=== PATIENT | male | born 1975 | race Caucasian/White ===

== ENCOUNTER → 2016-06-26 | Outpatient (CLI) | payer BC ==
--- NOTE | 2016-06-26 18:43 | CT ---
EXAMINATION TYPE: CT soft tissue neck w con DATE OF EXAM: 06/26/2016 6:33 PM COMPARISON: NONE HISTORY: Neck fullness after tonsillectomy. CT DLP: 696.00 mGycm Automated exposure control for dose reduction was used. CONTRAST: CT scan of the neck is performed following with IV Contrast, patient injected with 100 mL of Omnipaqu e 300. Axial images are obtained, coronal and sagittal reformatted images are reviewed. FINDINGS: There is normal aeration of the paranasal sinuses. Orbital margins are intact. Submandibular salivary glands are symmetric. Parotid glands are symmetric. The epiglottis is normal. Subglottic trachea appears normal. Adenoids are not enlarged. There is no evidence of a pharyngeal ma ss. Thyroid gland is symmetric. There is normal contrast opacification of the carotid arteries and ju gular veins. I see no cervical adenopathy. There is no evidence of a discrete neck mass. There is no pathologic fluid collection. I see no bony destructive process. IMPRESSION: Negative CT scan of the neck. No evidence of an abscess. I see no complicating process a fter the tonsillectomy.
== END | disposition home or self-care (01) ==
LOC: RADCTMAIN 17:58
PROVIDERS: ATTEND Otolaryngology
DX: R22.1 Localized swelling, mass and lump, neck (principal); Z90.89 Acquired absence of other organs
CPT/HCPCS: 70491; Q9967

== ENCOUNTER 2017-05-26 20:09 | Observation (INO) | payer BC ==
[2017-05-26] MEDS ORDERED: SODIUM CHLORIDE 0.9% 1,000 ML IV STA (20:25)
--- NOTE | 2017-05-26 20:32 | ED ---
General Adult HPI - General Chief complaint: ENT Stated complaint: Post Op/Tonsils Time Seen by Provider: 05/26/17 20:17 Source: patient, family, RN notes reviewed Mode of arrival: ambulatory Limitations: no limitations - History of Present Illness Initial comments: 42-year-old male presents emergency department with a chief complaint of bleeding at the tonsil site. Patient had a lingual tonsil removed at [facility] today he states it was enlarged so they removed it. He states that there is no other reason for removal. He states that his been bleeding today so they called the on-call ENT who referred him to the closest ER. He denies any lightheadedness or dizziness with this. He states that he is having some anxiety regarding the issue. He denies any nausea or vomiting. He states if he spits he will get blood about a spoonful worse. He states that he is having some generalized pain in his throat feels very raw. He denies any other symptoms at this time. Patient denies any recent fever, chills, shortness of breath, chest pain, back pain, abdominal pain, nausea vomiting, numbness or tingling, dysuria or hematuria, constipation or diarrhea, headaches or visual changes, or any other current symptoms. - Related Data Home Medications Medication Instructions Recorded Confirmed No Known Home Medications [No 05/26/17 05/26/17 Known Home Medications] Allergies Allergy/AdvReac Type Severity Reaction Status Date / Time No Known Allergies Allergy Verified 05/26/17 20:29 Review of Systems ROS Statement: Those systems with pertinent positive or pertinent negative responses have been documented in the HPI. ROS Other: All systems not noted in ROS Statement are negative. Past Medical History Past Medical History: No Reported History History of Any Multi-Drug Resistant Organisms: None Reported Past Surgical History: Back Surgery, Joint Replacement, Orthopedic Surgery, Tonsillectomy Past Psychological History: No Psychological Hx Reported Smoking Status: Never smoker Past Alcohol Use History: Occasional Past Drug Use History: None Reported General Exam Limitations: no limitations General appearance: alert, in no apparent distress Head exam: Present: atraumatic, normocephalic, normal inspection Eye exam: Present: normal appearance, PERRL, EOMI. Absent: scleral icterus, conjunctival injection, periorbital swelling ENT exam: Present: mucous membranes moist. Absent: normal oropharynx (Patient does appear to have some blood in the posterior oropharynx no active bleeding site is visualized at this time) Neck exam: Present: normal inspection. Absent: tenderness, meningismus, lymphadenopathy Respiratory exam: Present: normal lung sounds bilaterally. Absent: respiratory distress, wheezes, rales, rhonchi, stridor Cardiovascular Exam: Present: regular rate, normal rhythm, normal heart sounds. Absent: systolic murmur, diastolic murmur, rubs, gallop, clicks Neurological exam: Present: alert, oriented X3 Psychiatric exam: Present: normal affect, normal mood Skin exam: Present: warm, dry, intact, normal color. Absent: rash Course Vital Signs 05/26/17 05/26/17 05/26/17 20:12 21:25 23:50 Temperature 96.7 F L Pulse Rate 126 H 106 H 116 H Respiratory 18 18 20 Rate Blood Pressure 134/78 122/77 123/81 O2 Sat by Pulse 96 100 99 Oximetry Medical Decision Making - Medical Decision Making 42-year-old male presents to the emergency department with a chief complaint of bleeding at a tonsillectomy site. At this time I spoke with Dr. Basilio from [facility] time patient's care who is requesting that R local ENT care for the patient at this time to determine patient is stable for transfer observation here. At this time Dr. Kaufman was contacted she does agree to come in and managed patient. At this time the patient will be going to the OR for scope to further evaluate - Lab Data Result diagrams: 05/26/17 20:44 05/26/17 20:44 Lab Results 05/26/17 05/26/17 05/26/17 Range/Units 20:44 20:44 20:58 WBC 14.0 H (3.8-10.6) k/uL RBC 5.54 (4.30-5.90) m/uL Hgb 16.7 (13.0-17.5) gm/dL Hct 50.2 (39.0-53.0) % MCV 90.6 (80.0-100.0) fL MCH 30.1 (25.0-35.0) pg MCHC 33.2 (31.0-37.0) g/dL RDW 12.9 (11.5-15.5) % Plt Count 413 (150-450) k/uL Neutrophils % 92 % Lymphocytes % 6 % Monocytes % 1 % Eosinophils % 1 % Basophils % 0 % Neutrophils # 12.8 H (1.3-7.7) k/uL Lymphocytes # 0.9 L (1.0-4.8) k/uL Monocytes # 0.1 (0-1.0) k/uL Eosinophils # 0.1 (0-0.7) k/uL Basophils # 0.0 (0-0.2) k/uL Sodium 139 (137-145) mmol/L Potassium 4.6 (3.5-5.1) mmol/L Chloride 101 (98-107) mmol/L Carbon Dioxide 23 (22-30) mmol/L Anion Gap 15 mmol/L BUN 21 H (9-20) mg/dL Creatinine 0.89 (0.66-1.25) mg/dL Est GFR (MDRD) Af Amer >60 (>60 ml/min/1.73 sqM) Est GFR (MDRD) Non-Af >60 (>60 ml/min/1.73 sqM) Glucose 154 H (74-99) mg/dL Calcium 10.3 H (8.4-10.2) mg/dL Total Bilirubin 0.5 (0.2-1.3) mg/dL AST 26 (17-59) U/L ALT 23 (21-72) U/L Alkaline Phosphatase 62 (38-126) U/L Total Protein 7.5 (6.3-8.2) g/dL Albumin 4.8 (3.5-5.0) g/dL Blood Type A Positive Blood Type Confirm Blood Type Recheck CABO Indicated Antibody Screen NEGATIVE Spec Expiration Date 05/29/2017 - 235705/26/17 Range/Units 22:48 WBC (3.8-10.6) k/uL RBC (4.30-5.90) m/uL Hgb (13.0-17.5) gm/dL Hct (39.0-53.0) % MCV (80.0-100.0) fL MCH (25.0-35.0) pg MCHC (31.0-37.0) g/dL RDW (11.5-15.5) % Plt Count (150-450) k/uL Neutrophils % % Lymphocytes % % Monocytes % % Eosinophils % % Basophils % % Neutrophils # (1.3-7.7) k/uL Lymphocytes # (1.0-4.8) k/uL Monocytes # (0-1.0) k/uL Eosinophils # (0-0.7) k/uL Basophils # (0-0.2) k/uL Sodium (137-145) mmol/L Potassium (3.5-5.1) mmol/L Chloride (98-107) mmol/L Carbon Dioxide (22-30) mmol/L Anion Gap mmol/L BUN (9-20) mg/dL Creatinine (0.66-1.25) mg/dL Est GFR (MDRD) Af Amer (>60 ml/min/1.73 sqM) Est GFR (MDRD) Non-Af (>60 ml/min/1.73 sqM) Glucose (74-99) mg/dL Calcium (8.4-10.2) mg/dL Total Bilirubin (0.2-1.3) mg/dL AST (17-59) U/L ALT (21-72) U/L Alkaline Phosphatase (38-126) U/L Total Protein (6.3-8.2) g/dL Albumin (3.5-5.0) g/dL Blood Type Blood Type Confirm A Positive Blood Type Recheck Antibody Screen Spec Expiration Date Disposition Clinical Impression: Post-operative hemorrhage Disposition: [facility] Condition: Stable Referrals: Andrew Christy MD [Primary Care Provider] - 1-2 days Decision Date: 05/27/17 Decision Time: 00:20
[2017-05-26 20:58] LABS: Basophils % (A) 0 %; Eosinophils # (A) 0.1 k/uL (0-0.7); Eosinophils % (A) 1 %; HCT 50.2 % (39.0-53.0); HGB 16.7 gm/dL (13.0-17.5); Lymphocytes # (A) 0.9 k/uL (1.0-4.8); Lymphocytes % (A) 6 %; MCH 30.1 pg (25.0-35.0); MCHC 33.2 g/dL (31.0-37.0); MCV 90.6 fL (80.0-100.0); Mean Platelet Volume 6.5; Monocytes # (A) 0.1 k/uL (0-1.0); Monocytes % (A) 1 %; Neutrophils # (A) 12.8 k/uL (1.3-7.7); Neutrophils % (A) 92 %; Platelet Count 413 k/uL (150-450); RBC 5.54 m/uL (4.30-5.90); RDW 12.9 % (11.5-15.5)
[2017-05-26 21:12] LABS: ALT 23 U/L (21-72); AST 26 U/L (17-59); Albumin 4.8 g/dL (3.5-5.0); Alkaline Phosphatase 62 U/L (38-126); Anion Gap 15 mmol/L; Blood Urea Nitrogen 21 mg/dL (9-20); Calcium 10.3 mg/dL (8.4-10.2); Carbon Dioxide 23 mmol/L (22-30); Chloride 101 mmol/L (98-107); Glucose 154 mg/dL (74-99); Potassium 4.6 mmol/L (3.5-5.1); Sodium 139 mmol/L (137-145); Total Bilirubin 0.5 mg/dL (0.2-1.3); Total Protein 7.5 g/dL (6.3-8.2)
[2017-05-27] MEDS ORDERED: DEXAMETHASONE SOD PHOS (MDV) 100 MG/10 ML VIAL ONE (00:44)
[2017-05-27] MEDS ORDERED: SUCCINYLCHOLINE CHLORIDE 100 MG/5 ML SYR IV ONE (00:44)
[2017-05-27] MEDS ORDERED: fentaNYL (PF) 50 MCG/ML 2 ML AMP ONE (00:44)
[2017-05-27] MEDS ORDERED: IV FLUID CONTINUATION 100 ML IV ONE (00:44)
[2017-05-27] MEDS ORDERED: PROPOFOL 10 MG/ML 20 ML VIAL IV ONE (00:44)
[2017-05-27] MEDS ORDERED: MIDAZOLAM 2 MG/2 ML VIAL ONE (00:44)
[2017-05-27] MEDS ORDERED: ONDANSETRON 4 MG/2 ML VIAL ONE (00:44)
[2017-05-27] MEDS ORDERED: LACTATED RINGERS 1,000 ML IV ONE ×2 (01:11→02:05)
--- NOTE | 2017-05-27 02:27 | P.OP ---
Date of Procedure: 05/27/17 Preoperative Diagnosis: Acute hemorrhage from the left inferior palatine tonsillectomy site and soft palate laceration left side Postoperative Diagnosis: Same Procedure(s) Performed: Control of oropharyngeal hemorrhage status post left inferior palatine tonsillectomy, today. Control of left soft palate hemorrhage and laceration repair Anesthesia: FLORA Surgeon: Markie Aguirre Estimated Blood Loss (ml): 25 Pathology: none sent Condition: stable Disposition: PACU Indications for Procedure: This is a 42-year-old white male who presents to the emergency room today with active bleeding. Ice water gargles were tried by the emergency room physician but after a half hour there was no improvement. I was called in to the emergency room for an evaluation of this bleed. The patient tells me that he had a lingual tonsillectomy and had been bleeding since surgery. He tells me that he was bleeding in the recovery room but was sent home with active bleeding. He was bleeding from [place] and after continuously the patient and his decided to come to the emergency room here at [facility]. The bleeding had become increasing and more brisk. He was experiencing nausea. After examination it was decided take this patient to the operative room for control of this bleeding. The site of the bleeding was not assessable and there was not able to be controlled in an emergency room setting. All risks, benefits, and alternative therapies were discussed. Risks of bleeding, infection, carotid artery injury, nerve damage, tongue paralysis, scar, etc. etc. were discussed. Consent was obtained and all questions were answered. Operative Findings: Patient had profuse and active bleeding from the inferior portion of the palate 18 tonsillectomy area. It appeared to be a branch off the lingual artery i.e. dorsalis linguali. The bleeding was quite brisk and profuse. We also found a second source of bleeding from a left soft palate laceration there was oozing. The majority of the bleeding was from the inferior portion of the palatine tonsil surgical site. The lingual tonsil at the base the tongue appear to be untouched. The surgical site appeared to be from the inferior pole of where the palatine tonsil was and extended to the area epiglottic fold region. Description of Procedure: This patient was taken to the operative room and placed in the supine position. A general inhalation anesthetic was administered to the patient by the department of anesthesia and intubated with a #6 endotracheal tube with a cough. The patient was monitored throughout the entire case by the department of anesthesia. Functioning IV line was in place. Tooth guard was placed and the oral and hypopharyngeal region was examined with use of a Luz blade and laryngoscopy equipment. The patient was found have a active bleed there was fairly widespread along the lateral pharyngeal and hypopharyngeal region extending from the inferior portion of the palate and tonsil region to the area epiglottic fold. There was brisk bleeding noted laterally. With use of suction electrocoagulation this area was cauterized we utilized pressure, FloSeal, and suture for control of this bleeding. The bleeding was under excellent control. We lost about 25 mL of blood until the bleeding was controlled. The left lateral hypopharyngeal region was examined from the aryepiglottic fold to the inferior portion of the position of the palatine tonsil formally present. No bleeding was encountered the area was cauterized and previous surgical site was noted. After we control the lateral hypopharyngeal and pharyngeal bleeding further bleeding was noted coming from the soft palate. Examination of the soft palate revealed a 2 cm laceration into the muscle of the soft palate and was losing from that site. With use of a DeBakeys and a 4-0 Vicryl, interrupted sutures were placed and the bleeding was controlled. The patient tolerated this well. We will discharge this patient after recovery. Given my phone number to the patient's to call me if any problems should arise. Patient is to rest with head elevated. No crunchy foods for 3 weeks. No heavy lifting or bending. No fish oil. No blood thinners. The understands all these instructions and the patient is to see me on an as-needed basis. I did advise that he follow up at the [facility] soon as he can get a for a reevaluation.
--- NOTE | 2017-05-27 02:33 | P.GSHP ---
History of Present Illness H&P Date: 05/26/17 Chief Complaint: Acute oral pharyngeal and hypopharyngeal hemorrhage This is a 42-year-old white male who underwent surgery at the [facility]. I was told that he had a lingual tonsillectomy and had been bleeding since surgery. tells me that he was bleeding in recovery but was discharged in spite of his continued bleeding. The nurse in recovery told him that the bleeding would stop on the way home. Bleeding unfortunate continued and he presented here in the emergency room at [facility]. The bleeding had been fairly brisk and developed some nausea. Ice water gargles by the emergency room physician did not obtain any improvement. I was asked to see this patient and was called to the emergency room for evaluation. - Constitutional Constitutional: Reports anorexia - EENT Ears, nose, mouth and throat: Denies ant. neck pain - Cardiovascular Cardiovascular: Denies chest pain, Denies claudication - Respiratory Respiratory: Denies congestion - Gastrointestinal Gastrointestinal: Denies bloating - Genitourinary (Female) Genitourinary: Denies difficulty voiding - Genitourinary (Male) Genitourinary: Denies discharge - Musculoskeletal Musculoskeletal: Denies atrophy - Integumentary Integumentary: Denies acne - Neurological Neurological: Denies balance difficulties Past Medical History Past Medical History: No Reported History History of Any Multi-Drug Resistant Organisms: None Reported Past Surgical History: Back Surgery, Joint Replacement, Orthopedic Surgery, Tonsillectomy Past Psychological History: No Psychological Hx Reported Smoking Status: Never smoker Past Alcohol Use History: Occasional Past Drug Use History: None Reported Medications and Allergies Home Medications Medication Instructions Recorded Confirmed Type No Known Home Medications [No 05/26/17 05/26/17 History Known Home Medications] Allergies Allergy/AdvReac Type Severity Reaction Status Date / Time No Known Allergies Allergy Verified 05/26/17 20:29 Surgical - Exam Osteopathic Statement: *. No significant issues noted on an osteopathic structural exam other than those noted in the History and Physical/Consult. Vital Signs Temp Pulse Resp BP Pulse Ox 96.7 F L 126 H 18 134/78 96 05/26/17 20:12 05/26/17 20:12 05/26/17 20:12 05/26/17 20:12 05/26/17 20:12 - General well developed, well nourished, moderate distress - Eyes PERRL, normal ocular movement - ENT Head is normocephalic the face is symmetric there's no abnormal movements is no tenderness to the sinuses are mastoids are no nodules or eruptions or parasites on scalp. Auricles are well-formed canals clear. Nose is patent. Mouth and throat reveals active bleeding from the mouth brisk. Neck is unremarkable no tumors or masses are palpable. normal pinna, normal nares, normal mucosa, no hearing loss, no congestion - Neck no masses, no bruits, trachea midline, no lymphadectomy, no venous distension - Respiratory normal expansion, normal respiratory effort, clear to percussion, clear to auscultation - Abdomen Abdomen: soft - Integumentary no rash, no growths, no abnormal pigmentation - Neurologic normal coordination, normal sensation - Musculoskeletal normal gait, normal posture - Psychiatric oriented to time, oriented to person, oriented to place, speech is normal, memory intact Results - Labs 05/26/17 20:44 05/26/17 20:44 Abnormal Lab Results - Last 24 Hours (Table) 05/26/17 05/26/17 Range/Units 20:44 20:44 WBC 14.0 H (3.8-10.6) k/uL Neutrophils # 12.8 H (1.3-7.7) k/uL Lymphocytes # 0.9 L (1.0-4.8) k/uL BUN 21 H (9-20) mg/dL Glucose 154 H (74-99) mg/dL Calcium 10.3 H (8.4-10.2) mg/dL Diabetes panel 05/26/17 Range/Units 20:44 Sodium 139 (137-145) mmol/L Potassium 4.6 (3.5-5.1) mmol/L Chloride 101 (98-107) mmol/L Carbon Dioxide 23 (22-30) mmol/L BUN 21 H (9-20) mg/dL Creatinine 0.89 (0.66-1.25) mg/dL Glucose 154 H (74-99) mg/dL Calcium 10.3 H (8.4-10.2) mg/dL AST 26 (17-59) U/L ALT 23 (21-72) U/L Alkaline Phosphatase 62 (38-126) U/L Total Protein 7.5 (6.3-8.2) g/dL Albumin 4.8 (3.5-5.0) g/dL Calcium panel 05/26/17 Range/Units 20:44 Calcium 10.3 H (8.4-10.2) mg/dL Albumin 4.8 (3.5-5.0) g/dL Pituitary panel 05/26/17 Range/Units 20:44 Sodium 139 (137-145) mmol/L Potassium 4.6 (3.5-5.1) mmol/L Chloride 101 (98-107) mmol/L Carbon Dioxide 23 (22-30) mmol/L BUN 21 H (9-20) mg/dL Creatinine 0.89 (0.66-1.25) mg/dL Glucose 154 H (74-99) mg/dL Calcium 10.3 H (8.4-10.2) mg/dL Adrenal panel 05/26/17 Range/Units 20:44 Sodium 139 (137-145) mmol/L Potassium 4.6 (3.5-5.1) mmol/L Chloride 101 (98-107) mmol/L Carbon Dioxide 23 (22-30) mmol/L BUN 21 H (9-20) mg/dL Creatinine 0.89 (0.66-1.25) mg/dL Glucose 154 H (74-99) mg/dL Calcium 10.3 H (8.4-10.2) mg/dL Total Bilirubin 0.5 (0.2-1.3) mg/dL AST 26 (17-59) U/L ALT 23 (21-72) U/L Alkaline Phosphatase 62 (38-126) U/L Total Protein 7.5 (6.3-8.2) g/dL Albumin 4.8 (3.5-5.0) g/dL Assessment and Plan (1) Soft palate injury Current Visit: Yes Status: Acute Code(s): S09.93XA - UNSPECIFIED INJURY OF FACE, INITIAL ENCOUNTER SNOMED Code(s): 08334849 Plan: This patient has done well after repair of the soft palatal laceration and control of his left pharyngeal and hypopharyngeal hemorrhage. The bleeding appeared to be coming from a branch of the lingual artery. Patient also had a 2 cm laceration of the left soft palate that was repaired and with repair the bleeding stopped. The patient was monitored and no bleeding was noted after control surgically. I've advised the patient to follow up at the [facility] as soon as possible for a reevaluation. Patient is to call me if any problems should arise. The patient does have Vicodin elixir for pain control. Patient is to be on a soft diet for 3 weeks. No heavy lifting or bending. Time with Patient: Greater than 30
[2017-05-27 08:13] VITALS: BP 148/79; PULSE 105; RESP 16; TEMP 98.4
== END 2017-05-27 03:20 | disposition home or self-care (01) ==
LOC: EC 20:09 → 3SUR 05-27 00:15
PROVIDERS: ADMIT Otolaryngology; ATTEND Otolaryngology
DX: J95.830 Postprocedural hemorrhage of a respiratory system organ or structure following a respiratory system procedure (principal); S01.512A Laceration without foreign body of oral cavity, initial encounter; R11.0 Nausea; Y83.6 Removal of other organ (partial) (total) as the cause of abnormal reaction of the patient, or of later complication, without mention of misadventure at the time of the procedure
CPT/HCPCS: 42962; 42180; 99284 ×2; 96360 ×2; 96361 ×2; 36415; 86900; 86901; 80053; 85025; 86850; G0378; C1762; J2250; J2405; J3010; J1100; J0330; J2704

== ENCOUNTER 2019-03-26 17:37 | Emergency (ER) | payer BC, OTHER ==
[2019-03-26 17:44] VITALS: RESP 18
[2019-03-26] MEDS ORDERED: ASPIRIN 81 MG PO STA (17:57)
--- NOTE | 2019-03-26 18:00 | ED ---
Chest Pain HPI - General Chief Complaint: Chest Pain Stated Complaint: Chest pain, palpitations Time Seen by Provider: 03/26/19 17:50 Source: patient, RN notes reviewed Mode of arrival: ambulatory Limitations: no limitations - History of Present Illness Initial Comments: 43-year-old male presents emergency Department with chief complaint of palpitations, chest pain. Patient states symptoms started yesterday states it's in his lower chest today in the central to left-sided. 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 Patient states that they those related to caffeine take caffeine out of his diet. Patient states he was also on metoprolol for a few years but states he was often doing well. He shouldn't denies any shortness breath, headache or dizziness. He has no complaints of abdominal pain states he has no history of GERD. Patient states that his never had pain with his palpitations on past. He does admit that it's intermittent jabbing type symptoms. - Related Data Home Medications Medication Instructions Recorded Confirmed No Known Home Medications 05/26/17 05/26/17 Allergies Allergy/AdvReac Type Severity Reaction Status Date / Time No Known Allergies Allergy Verified 03/26/19 17:41 Review of Systems ROS Statement: Those systems with pertinent positive or pertinent negative responses have been documented in the HPI. ROS Other: All systems not noted in ROS Statement are negative. EKG Findings - EKG Comments: EKG Findings:: EKG performed at 17:49 normal sinus rhythm rate of 78 NM 134 QRS 92 QT/QTC 354/403 Past Medical History Past Medical History: No Reported History Additional Past Medical History / Comment(s): tachycardia History of Any Multi-Drug Resistant Organisms: None Reported Past Surgical History: Back Surgery, Joint Replacement, Orthopedic Surgery, Tonsillectomy Past Psychological History: No Psychological Hx Reported Smoking Status: Never smoker Past Alcohol Use History: Occasional Past Drug Use History: None Reported General Exam Limitations: no limitations General appearance: alert, in no apparent distress Head exam: Present: atraumatic, normocephalic, normal inspection Eye exam: Present: normal appearance, PERRL, EOMI. Absent: scleral icterus, conjunctival injection, periorbital swelling ENT exam: Present: normal exam, normal oropharynx, mucous membranes moist Neck exam: Present: normal inspection, full ROM. Absent: tenderness, meningismus, lymphadenopathy Respiratory exam: Present: normal lung sounds bilaterally. Absent: respiratory distress, wheezes, rales, rhonchi, stridor Cardiovascular Exam: Present: regular rate, normal rhythm, normal heart sounds. Absent: systolic murmur, diastolic murmur, rubs, gallop, clicks GI/Abdominal exam: Present: soft, normal bowel sounds. Absent: distended, tenderness, guarding, rebound, rigid Back exam: Absent: CVA tenderness (R), CVA tenderness (L) Neurological exam: Present: alert, oriented X3 Skin exam: Present: warm, dry, intact, normal color. Absent: rash Course Vital Signs 03/26/19 17:42 Temperature 97.8 F Pulse Rate 85 Respiratory 18 Rate Blood Pressure 154/92 O2 Sat by Pulse 98 Oximetry Chest Pain MDM - MDM Labs, EKG, chest x-ray unremarkable. Patient said history of palpitations. Patient did have some mild discomfort. There are no acute findings. Patient will be discharged at this time patient advised to follow-up with primary care physician and rotor casting machine operator return parameters were discussed Disposition Clinical Impression: Palpitations Disposition: HOME SELF-CARE Condition: Stable Instructions (If sedation given, give patient instructions): Chest Pain (ED) Additional Instructions: Please return to the Emergency Department if symptoms worsen or any other concerns. Is patient prescribed a controlled substance at d/c from ED?: No Referrals: Andrew Christy MD [Primary Care Provider] - 1-2 days Time of Disposition: 19:10
[2019-03-26 18:14] LABS: Basophils % (A) 0 %; Eosinophils # (A) 0.1 k/uL (0-0.7); Eosinophils % (A) 1 %; HCT 49.5 % (39.0-53.0); HGB 16.5 gm/dL (13.0-17.5); Lymphocytes # (A) 2.2 k/uL (1.0-4.8); Lymphocytes % (A) 31 %; MCHC 33.3 g/dL (31.0-37.0); Mean Platelet Volume 5.8; Monocytes # (A) 0.4 k/uL (0-1.0); Monocytes % (A) 6 %; Neutrophils % (A) 58 %; Platelet Count 372 k/uL (150-450); RDW 12.4 % (11.5-15.5); WBC 6.9 k/uL (3.8-10.6)
--- NOTE | 2019-03-26 18:21 | XR ---
EXAMINATION TYPE: XR chest 2V DATE OF EXAM: 03/26/2019 COMPARISON: NONE HISTORY: Chest pain for 2 days TECHNIQUE: Frontal and lateral views of the chest are obtained. FINDINGS: There is no focal air space opacity, pleural effusion, or pneumothorax seen. On hyperinfl ation could relate to underlying emphysema or degree of inspiration. The cardiac silhouette size is w ithin normal limits. The osseous structures are intact. IMPRESSION: No acute cardiopulmonary process.
[2019-03-26 18:46] LABS: ALT 16 U/L (21-72); AST 37 U/L (17-59); African American GFR (CKD) >90 (>60 ml/min/1.73 sqM); Alkaline Phosphatase 63 U/L (38-126); Anion Gap 12 mmol/L; Blood Urea Nitrogen 16 mg/dL (9-20); Calcium 9.9 mg/dL (8.4-10.2); Carbon Dioxide 27 mmol/L (22-30); Chloride 102 mmol/L (98-107); Glucose 95 mg/dL (74-99); Magnesium 1.8 mg/dL (1.6-2.3); Non-African American GFR(CKD) >90 (>60 ml/min/1.73 sqM); Potassium 4.6 mmol/L (3.5-5.1); Sodium 141 mmol/L (137-145); Total Bilirubin 0.8 mg/dL (0.2-1.3); Total Protein 8.3 g/dL (6.3-8.2)
[2019-03-26 18:57] LABS: D-Dimer 0.46 mg/L FEU (<0.60); Partial Thromboplastin Time 28.1 sec (22.0-30.0); Prothrombin Time 11.1 sec (9.0-12.0)
[2019-03-26 19:24] VITALS: BP 120/77; PULSE 78; TEMP 98.5
== END 2019-03-26 19:24 | disposition home or self-care (01) ==
LOC: EC 17:37
DX: R00.2 Palpitations (principal); R07.89 Other chest pain; Z96.698 Presence of other orthopedic joint implants
CPT/HCPCS: 36415; 71046; 80053; 83690; 83735; 83880; 84484; 85025; 85379; 85610; 85730; 93005; 99285

== ENCOUNTER 2019-04-12 16:41 | Observation (INO) | payer OTHER ==
[2019-04-12 16:54] VITALS: RESP 18
[2019-04-12] MEDS ORDERED: ASPIRIN 81 MG PO STA (17:20)
--- NOTE | 2019-04-12 17:30 | ED ---
Chest Pain HPI - General Chief Complaint: Chest Pain Stated Complaint: Chest pain Time Seen by Provider: 04/12/19 17:00 Source: patient Mode of arrival: ambulatory Limitations: no limitations - History of Present Illness Initial Comments: The patient is a 43-year-old male with past medical history of palpitations presents emergency Department with reported chest pain. He describes it as a chest tightness which started yesterday. Reports that he was laying around his house when symptoms started. No provocative factors. Pressure sensation radiates to his left arm. No associated shortness of breath, diaphoresis, nausea or vomiting. Denies pleuritic chest pain. No worsening with exertion. Did not take any medications at home for his symptoms. Denies any previous cardiac history other than palpitations which was related to caffeine intake. At time and saw a tree warden out of [place]. States that this was several years ago. He denies history of cardiac catheterization. Unknown when his last stress test was. Denies family history of cardiac disease. No lower extremity edema. Denies any calf pain or swelling. No history of DVT or PE. No ripping or tearing sensation to his back. Denies any back or flank pain. Does admit to left upper quadrant abdominal pain. Denies any changes in his bowel or bladder habits. No fevers or chills. Denies cough or hemoptysis. No recent travel greater than 6 hours. The patient had chest pain on the eighth of this month. He did come in to the emergency room for evaluation. Laboratory studies and chest x-ray are negative the patient was sent home. He he called his tree warden to follow-up however they state that since it's been such a extended period of time that he would have to be considered a new patient. Because of this he did call make an appointment with Dr. Russo. Appointment is scheduled for April 25. There are no alleviating, preciptating or modifying factors. - Related Data Home Medications Medication Instructions Recorded Confirmed No Known Home Medications 05/26/17 04/12/19 Allergies Allergy/AdvReac Type Severity Reaction Status Date / Time No Known Allergies Allergy Verified 04/12/19 19:06 Review of Systems ROS Statement: Those systems with pertinent positive or pertinent negative responses have been documented in the HPI. ROS Other: All systems not noted in ROS Statement are negative. EKG Findings - EKG Comments: EKG Findings:: EKG demonstrates a sinus rhythm with a ventricular rate of 70. NC interval 142. QRS 90. QTc is 386. There is J-point elevation in leads V3. No reciprocal changes. The patient's EKG is compared to his previous EKG on the eighth and a similar nature Past Medical History Past Medical History: No Reported History Additional Past Medical History / Comment(s): tachycardia History of Any Multi-Drug Resistant Organisms: None Reported Past Surgical History: Back Surgery, Joint Replacement, Orthopedic Surgery, Tonsillectomy Past Psychological History: No Psychological Hx Reported Smoking Status: Never smoker Past Alcohol Use History: Occasional Past Drug Use History: None Reported - Past Family History Father Family Medical History: No Reported History Mother Family Medical History: No Reported History General Exam Limitations: no limitations General appearance: alert, in no apparent distress Head exam: Present: atraumatic, normocephalic, normal inspection Eye exam: Present: normal appearance, PERRL, EOMI. Absent: scleral icterus, conjunctival injection, periorbital swelling ENT exam: Present: normal exam, mucous membranes moist Neck exam: Present: normal inspection. Absent: tenderness, meningismus, lymphadenopathy Respiratory exam: Present: normal lung sounds bilaterally. Absent: respiratory distress, wheezes, rales, rhonchi, stridor Cardiovascular Exam: Present: regular rate, normal rhythm, normal heart sounds. Absent: systolic murmur, diastolic murmur, rubs, gallop, clicks GI/Abdominal exam: Present: soft, normal bowel sounds. Absent: distended, tenderness, guarding, rebound, rigid Extremities exam: Present: normal inspection, full ROM, normal capillary refill. Absent: tenderness, pedal edema, joint swelling, calf tenderness Back exam: Present: normal inspection Neurological exam: Present: alert, oriented X3, CN II-XII intact Psychiatric exam: Present: normal affect, normal mood Skin exam: Present: warm, dry, intact, normal color. 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 A thorough history and physical exam was performed. Patient was placed on continuous pulse ox and cardiac monitoring. Peripheral IV is established. 12-lead EKG is performed which demonstrates some J-point elevation in lead V3. This is compared to the patient's previous EKG and is similar. Laboratory studies were conducted. CBC, CMP and coags are unremarkable. D-dimer is 0.39. First troponin is negative. Chest x-ray demonstrated no acute findings. As this is the patient's second time to the emergency room with reported chest pain I did recommend hospital admission in order to trend his troponins and to be evaluated by cardiology. The patient did agree to this. I called and discussed the case with Dr. Hays who accepted admission for the patient. The patient is currently awaiting a bed on the floor Disposition Clinical Impression: Chest pain Disposition: ADMITTED IP TO THIS HOSP Condition: Stable Is patient prescribed a controlled substance at d/c from ED?: No Decision to Admit Reason: Admit from EC Decision Date: 04/12/19 Decision Time: 18:47
[2019-04-12 17:38] LABS: Basophils # (A) 0.1 k/uL (0-0.2); Basophils % (A) 3 %; Eosinophils # (A) 0.1 k/uL (0-0.7); Eosinophils % (A) 2 %; HCT 49.9 % (39.0-53.0); HGB 16.4 gm/dL (13.0-17.5); Lymphocytes # (A) 1.6 k/uL (1.0-4.8); Lymphocytes % (A) 31 %; MCH 29.5 pg (25.0-35.0); MCHC 32.9 g/dL (31.0-37.0); MCV 89.9 fL (80.0-100.0); Mean Platelet Volume 6.6; Monocytes # (A) 0.3 k/uL (0-1.0); Monocytes % (A) 7 %; Neutrophils # (A) 2.8 k/uL (1.3-7.7); Neutrophils % (A) 55 %; Platelet Count 259 k/uL (150-450); RBC 5.56 m/uL (4.30-5.90); RDW 12.6 % (11.5-15.5); WBC 5.1 k/uL (3.8-10.6)
--- NOTE | 2019-04-12 17:53 | XR ---
EXAMINATION TYPE: XR chest 2V DATE OF EXAM: 04/12/2019 COMPARISON: 03/26/2019 HISTORY: Chest pain TECHNIQUE: 2 views FINDINGS: Heart and mediastinum are normal. Lungs are clear. Diaphragm is normal. Bony thorax appears normal. There are chest leads. IMPRESSION: Normal chest. No change.
[2019-04-12 17:56] LABS: D-Dimer 0.39 mg/L FEU (<0.60); Partial Thromboplastin Time 29.7 sec (22.0-30.0); Prothrombin Time 10.6 sec (9.0-12.0)
[2019-04-12 18:00] LABS: ALT 19 U/L (4-49); AST 28 U/L (17-59); African American GFR (CKD) >90 (>60 ml/min/1.73 sqM); Albumin 4.7 g/dL (3.5-5.0); Alkaline Phosphatase 77 U/L (38-126); Anion Gap 10 mmol/L; Blood Urea Nitrogen 14 mg/dL (9-20); Calcium 9.7 mg/dL (8.4-10.2); Carbon Dioxide 27 mmol/L (22-30); Chloride 104 mmol/L (98-107); Glucose 91 mg/dL (74-99); Magnesium 1.8 mg/dL (1.6-2.3); Non-African American GFR(CKD) >90 (>60 ml/min/1.73 sqM); Sodium 141 mmol/L (137-145); Total Bilirubin 0.7 mg/dL (0.2-1.3); Total Protein 7.7 g/dL (6.3-8.2)
[2019-04-12] MEDS ORDERED: NALOXONE 0.4 MG/ML 1 ML VIAL IV PRN (18:47)
[2019-04-13 06:26] LABS: Basophils % (A) 0 %; Eosinophils # (A) 0.1 k/uL (0-0.7); Eosinophils % (A) 3 %; HCT 47.2 % (39.0-53.0); HGB 16.3 gm/dL (13.0-17.5); Lymphocytes # (A) 1.9 k/uL (1.0-4.8); Lymphocytes % (A) 39 %; MCH 30.9 pg (25.0-35.0); MCHC 34.4 g/dL (31.0-37.0); MCV 89.8 fL (80.0-100.0); Mean Platelet Volume 7.1; Monocytes # (A) 0.3 k/uL (0-1.0); Monocytes % (A) 6 %; Neutrophils # (A) 2.4 k/uL (1.3-7.7); Neutrophils % (A) 49 %; Platelet Count 258 k/uL (150-450); RBC 5.25 m/uL (4.30-5.90); RDW 12.7 % (11.5-15.5); WBC 4.8 k/uL (3.8-10.6)
[2019-04-13 06:50] LABS: African American GFR (CKD) >90 (>60 ml/min/1.73 sqM); Anion Gap 5 mmol/L; Blood Urea Nitrogen 14 mg/dL (9-20); Calcium 9.5 mg/dL (8.4-10.2); Carbon Dioxide 30 mmol/L (22-30); Chloride 105 mmol/L (98-107); Glucose 99 mg/dL (74-99); Non-African American GFR(CKD) >90 (>60 ml/min/1.73 sqM); Potassium 4.5 mmol/L (3.5-5.1); Sodium 140 mmol/L (137-145)
--- NOTE | 2019-04-13 08:33 | CONS ---
CONSULTATION Mr. Aguirre is a 43-year-old male who presented with symptoms of chest discomfort. His discomfort was not exertional in pattern, occurring on and off, lasting for a very brief period of time. He is usually active physically and has no exertional symptoms. He denies any dizziness. He had a prior history of palpitation and has been evaluated at [place] in the past and subsequently underwent a workup about 7-8 years ago and that was unremarkable. Some of his palpitation were worse with caffeine, which he has decreased. Patient denies any recent palpitation. He has no PND, orthopnea, or peripheral edema. His coronary risk factor is negative for hypertension or diabetes. He is a nonsmoker. No document hyperlipidemia. MEDICATION: At home are none. REVIEW OF SYSTEMS: RESPIRATORY SYSTEM: No documented history of asthma, emphysema or bronchitis. GI SYSTEM: No recent GI bleeding. No peptic ulcer disease. SYSTEM: No dysuria or hematuria. NERVOUS SYSTEM: No stroke or seizure. 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 Blood pressure 117/70 with a heart rate in 70s. HEAD: Normocephalic. EYES: Sclerae nonicteric. NECK: Good upstroke, no bruit, no distension. LUNGS: Clear to auscultation. HEART: Regular rate and rhythm, S1, S2. No S3. No S4. No murmur or rub. ABDOMEN: Soft, nontender, positive bowel sounds, no organomegaly. EXTREMITIES: No edema, intact pulses. LAB DATA: Revealed troponin less than 0.012 for 3 samples. BUN and creatinine 14 and 0.9, potassium 4.5, hemoglobin of 16.3 EKG revealed a sinus mechanism, normal axis and intervals. No acute changes. Chest x-ray shows no acute infiltrate. IMPRESSION: Chest discomfort of unclear etiology, has atypical features feature for ischemic heart disease, probably noncardiac. RECOMMENDATION: I recommend proceeding with a stress echocardiogram and a transthoracic echo. If there is no evidence of abnormality, then no further cardiac workup will be needed. Thank you for this consult. Will follow with you. MMODL / IJN: [id number] /
[2019-04-13 11:47] VITALS: BP 124/83; PULSE 97; TEMP 98.8
--- NOTE | 2019-04-13 11:52 | ECHOF ---
Referral Reason:cp MEASUREMENTS -------- HEIGHT: 185.4 cm WEIGHT: 75.7 kg BP: 151/76 RVIDd: 2.8 cm (< 3.3) IVSd: 1.1 cm (0.6 - 1.1) LVIDd: 4.2 cm (3.9 - 5.3) LVPWd: 1.1 cm (0.6 - 1.1) IVSs: 1.4 cm LVIDs: 3.1 cm LVPWs: 1.6 cm LA Diam: 2.3 cm (2.7 - 3.8) Ao Diam: 3.6 cm (2.0 - 3.7) AV Cusp: 2.3 cm (1.5 - 2.6) MV EXCURSION: 21.150 mm (> 18.000) MV EF SLOPE: 127 mm/s (70 - 150) EPSS: 0.4 cm MV E Leandro: 0.75 m/s MV DecT: 205 ms MV A Leandro: 0.62 m/s MV E/A Ratio: 1.22 RAP: 5.00 mmHg RVSP: 26.68 mmHg FINDINGS -------- Sinus rhythm. This was a technically good study. The left ventricular size is normal. Left ventricular wall thickness is normal. Overall left vent ricular systolic function is normal with, an EF between 55 - 60 %. The right ventricle is normal in size. The left atrial size is normal. The right atrial size is normal. Interatrial and interventricular septum intact. The aortic valve is trileaflet, and appears structurally normal. No aortic stenosis or regurgitation. The mitral valve is normal. No mitral regurgitation. Trace tricuspid regurgitation present. Right ventricular systolic pressure is normal at < 35 mmHg. There is no pulmonic regurgitation present. The aortic root size is normal. Normal inferior vena cava with normal inspiratory collapse consistent with estimated right atrial pre ssure of 5 mmHg. There is no pericardial effusion. CONCLUSIONS -------- 1. Sinus rhythm. 2. This was a technically good study. 3. The left ventricular size is normal. 4. Left ventricular wall thickness is normal. 5. Overall left ventricular systolic function is normal with, an EF between 55 - 60 %. 6. The left atrial size is normal. 7. The aortic valve is trileaflet, and appears structurally normal. No aortic stenosis or regurgitati on. 8. The mitral valve is normal. 9. Trace tricuspid regurgitation present. 10. Right ventricular systolic pressure is normal at < 35 mmHg. 11. There is no pulmonic regurgitation present. 12. There is no pericardial effusion. THERMODYNAMICS ENGINEER: Sasha Blanchard RDCS
--- NOTE | 2019-04-13 12:29 | ECHOS ---
STRESS ECHOCARDIOGRAM DATE OF SERVICE: 04/13/2019 INDICATIONS: Chest pain. MEDICATIONS: BASELINE HEART RATE: 75 BASELINE BLOOD PRESSURE: 151/76 MAXIMUM HEART RATE: 182 MAXIMUM BLOOD PRESSURE: 200/84 85% MPHR: 152 100% MPHR: 171 METS: 14.7 MAXIMUM STAGE REACHED: V TOTAL EXERCISE TIME: 14 minutes 12 seconds CLINICAL INFORMATION: Baseline rhythm is a sinus mechanism, rate of 75, normal axis and intervals, normal electrocardiogram. Baseline blood pressure 151/76 mmHg. Patient exercised on Jose Miguel protocol for 14 minute 12 seconds reaching peak rate 182 beats per minute which is equal to 100% maximum predicted heart rate. Peak blood pressure 200/84 mmHg. Test was terminated secondary to fatigue. There was no chest pain. Electrocardiograph monitoring revealed no evidence of diagnostic ischemic ST deviation. Baseline echocardiogram revealed normal wall motion. At peak exercise, there was normal wall motion augmentation with no hypokinesis or dyskinesis. CONCLUSION: 1. Excellent exercise tolerance with normal electrocardiograph response to exercise. 2. Normal stress echocardiogram with no evidence of stress induced ischemia. MMODL / IJN: [id number] /
--- NOTE | 2019-04-13 15:59 | P.DS ---
Providers Date of admission: 04/12/19 18:47 Attending physician: Jorge Luis Hays MD Consults: 04/12/19 18:59 Consult Physician Urgent Consulting Provider: [facility] Consult Reason/Comments: acute chest pain Do you want consulting provider notified?: Yes Primary care physician: Andrew Christy Hospital Course: Please refer to my H&P for further details Patient Condition at Discharge: Stable Plan - Discharge Summary New Discharge Prescriptions: No Action No Known Home Medications Discharge Medication List No Known Home Medications 05/26/17 [History] Follow up Appointment(s)/Referral(s): Camilo Tyson MD [STAFF PHYSICIAN] - 2 Weeks (Cardiology will call with follow up appointment date and time) Andrew Christy MD [Primary Care Provider] - 1-2 days Patient Instructions/Handouts: Chest Pain (DC) Discharge Disposition: HOME SELF-CARE
--- NOTE | 2019-04-13 15:59 | P.HPIM ---
History of Present Illness 43-year-old male came in with complaints of chest discomfort mild pressure like on and off nonexertional associated palpitations. Patient underwent the lengthy workup in the past for palpitations. It was believed patient's palpitations are secondary to caffeine and patient ischemia Consistent. Patient's symptoms completely resolved at this time patient denied Proximal nocturnal dyspnea. Patient was evaluated by cardiology rule out a concurrent syndromes underwent stress test that was negative no further workup is being recommended by cardiology and patient is being discharged patient doesn't take any medications at home. Review of Systems REVIEW OF SYSTEMS: CONSTITUTIONAL: No fever, no malaise, no fatigue. HEENT: No recent visual problems or hearing problems. Denied any sore throat. CARDIOVASCULAR: No orthopnea, PND, , no syncope. PULMONARY: No shortness of breath, no cough, no hemoptysis. GASTROINTESTINAL: No diarrhea, no nausea, no vomiting, no abdominal pain. NEUROLOGICAL: No headaches, no weakness, no numbness. HEMATOLOGICAL: Denies any bleeding or petechiae. GENITOURINARY: Denies any burning micturition, frequency, or urgency. MUSCULOSKELETAL/RHEUMATOLOGICAL: Denies any joint pain, swelling, or any muscle pain. ENDOCRINE: Denies any polyuria or polydipsia. The rest of the 14-point review of systems is negative. Past Medical History Past Medical History: No Reported History Additional Past Medical History / Comment(s): tachycardia History of Any Multi-Drug Resistant Organisms: None Reported Past Surgical History: Back Surgery, Joint Replacement, Orthopedic Surgery, Tonsillectomy Additional Past Surgical History / Comment(s): right below elbow amp Past Psychological History: No Psychological Hx Reported Smoking Status: Never smoker Past Alcohol Use History: Occasional Past Drug Use History: None Reported - Past Family History Father Family Medical History: No Reported History Mother Family Medical History: No Reported History Medications and Allergies Home Medications Medication Instructions Recorded Confirmed Type No Known Home Medications 05/26/17 04/12/19 History Allergies Allergy/AdvReac Type Severity Reaction Status Date / Time No Known Allergies Allergy Verified 04/12/19 19:06 Physical Exam Vitals: Vital Signs Temp Pulse Pulse Pulse Resp BP BP 04/13/19 11:46 98.8 F 97 18 124/83 04/13/19 08:00 97.9 F 63 18 117/79 04/13/19 04:00 98.1 F 73 18 113/65 12/26/19 00:00 60 18 128/75 04/12/19 20:00 98.4 F 59 L 18 130/86 04/12/19 19:30 97.8 F 62 18 118/84 04/12/19 19:00 65 16 117/85 04/12/19 18:30 64 16 120/83 04/12/19 18:00 64 18 137/84 04/12/19 17:30 69 17 141/98 04/12/19 17:16 64 17 04/12/19 16:52 97.7 F 77 18 136/91 04/12/19 16:45 74 Pulse Ox 04/13/19 11:46 95 04/13/19 08:00 96 04/13/19 04:00 98 04/13/19 00:00 97 04/12/19 20:00 98 04/12/19 19:30 97 04/12/19 19:00 97 04/12/19 18:30 97 04/12/19 18:00 98 04/12/19 17:30 04/12/19 17:16 04/12/19 16:52 98 04/12/19 16:45 Intake and Output 04/13/19 04/13/19 04/13/19 06:59 14:59 22:59 Other: Voiding Method Toilet # Voids 2 Weight 75.1 kg 75.1 kg PHYSICAL EXAMINATION: GENERAL: The patient is alert and oriented x3, not in any acute distress. Well developed, well nourished. HEENT: Pupils are round and equally reacting to light. EOMI. No scleral icterus. No conjunctival pallor. Normocephalic, atraumatic. No pharyngeal erythema. No thyromegaly. CARDIOVASCULAR: S1 and S2 present. No murmurs, rubs, or gallops. PULMONARY: Chest is clear to auscultation, no wheezing or crackles. ABDOMEN: Soft, nontender, nondistended, normoactive bowel sounds. No palpable organomegaly. MUSCULOSKELETAL: No joint swelling or deformity. EXTREMITIES: No cyanosis, clubbing, or pedal edema. 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 SKIN: No rashes. Results CBC & Chem 7: 04/13/19 06:00 04/13/19 06:00 Thrombosis Risk Factor Assmnt - Choose All That Apply Each Factor Represents 1 point: Age 41-60 years Thrombosis Risk Factor Assessment Total Risk Factor Score: 1 Thrombosis Risk Factor Assessment Level: Low Risk Assessment and Plan Plan: Chest discomfort etiology is not clear. Impression chest pain and underwent stresses and patient is being discharged today and patient is cleared by cardiology -Palpitations urology is not clear either and patient had extensive workup in the past patient become symptomatic again probably will need workup as an outpatient for that.
== END 2019-04-13 13:48 | disposition home or self-care (01) ==
LOC: EC 16:41 → 3SCARD 18:47 → 1SOBS 04-13 07:40
PROVIDERS: ADMIT Internal Medicine; ATTEND Internal Medicine
DX: R07.89 Other chest pain (principal); R00.2 Palpitations; Z98.890 Other specified postprocedural states; Z96.60 Presence of unspecified orthopedic joint implant; Z90.89 Acquired absence of other organs
CPT/HCPCS: 93005; 99285; 36415; 93306; 93351; 85379; 80053; 80048; 83735; 84484 ×2; 85025 ×2; 85610; 85730; 71046; G0378 ×2

== ENCOUNTER → 2021-01-30 | Outpatient (CLI) | payer OTHER ==
--- NOTE | 2021-01-30 17:39 | XR ---
EXAMINATION TYPE: XR chest 2V DATE OF EXAM: 01/30/2021 COMPARISON: 04/12/2019 INDICATION: Surgical clearance TECHNIQUE: Frontal and lateral views of the chest are obtained. FINDINGS: The heart size is normal. The pulmonary vasculature is normal. The lungs are clear. IMPRESSION: 1. No acute pulmonary process.
[2021-01-30 18:07] LABS: Appearance,Urine Clear (Clear); Bilirubin,Urine Negative (Negative); Blood,Urine Negative (Negative); Color,Urine Light Yellow; Glucose,Urine (UA) Negative (Negative); Ketones,Urine Negative (Negative); Leukocyte Esterase,Urine Negative (Negative); Nitrite,Urine Negative (Negative); PH, Urine 6.5 (5.0-8.0); Protein,Urine Negative (Negative); Specific Gravity,Urine 1.014 (1.001-1.035); Urobilinogen,Urine <2.0 mg/dL (<2.0)
[2021-01-30 23:51] LABS: HGB 15.1 g/dL (13.0-17.0); MCH 30.4 pg (27.0-32.0); MCHC 32.8 g/dL (32.0-37.0); MCV 92.6 fL (80.0-97.0); Mean Platelet Volume 8.6 fL (9.5-12.2); Platelet Count 307 X 10*3/uL (140-440); RBC 4.97 X 10*6/uL (4.40-5.60); RDW 13.1 % (11.5-14.5)
[2021-01-31 03:57] LABS: African American GFR (CKD) 116.3 (60.0-200.0); Anion Gap 16.2 mmol/L (4.00-12.00); BUN/Creat Ratio 19.27 Ratio (12.00-20.00); Blood Urea Nitrogen 17.9 mg/dL (9.0-27.0); Calcium 9.4 mg/dL (8.7-10.3); Carbon Dioxide 23.6 mmol/L (21.6-31.8); Non-African American GFR(CKD) 100.3 (60.0-200.0); Potassium 4.6 mmol/L (3.5-5.5)
== END | disposition home or self-care (01) ==
LOC: LABWHC1 16:06
PROVIDERS: ATTEND Neurological Surgery
DX: Z01.818 Encounter for other preprocedural examination (principal); Z20.822 Contact with and (suspected) exposure to COVID-19; D64.9 Anemia, unspecified; R05.9 Cough, unspecified; I10 Essential (primary) hypertension; I49.8 Other specified cardiac arrhythmias; R30.0 Dysuria; R94.31 Abnormal electrocardiogram [ECG] [EKG]
CPT/HCPCS: 80048; 85027; 81003; 71046; 93005; 36415; U0003; U0005

== ENCOUNTER 2021-02-09 11:07 | Emergency (ER) | payer BC, OTHER ==
[2021-02-09 11:15] VITALS: RESP 18; TEMP 97.9
[2021-02-09] MEDS ORDERED: SODIUM CHLORIDE 0.9% 1,000 ML IV STA (11:24)
--- NOTE | 2021-02-09 11:34 | ED ---
General Adult HPI - General Chief complaint: Headache Stated complaint: Headache/post spinal epi Time Seen by Provider: 02/09/21 11:16 Source: patient Mode of arrival: ambulatory Limitations: no limitations - History of Present Illness Initial comments: Dictation was produced using [employer] dictation software. please excuse any grammatical, word or spelling errors. Chief Complaint: 45-year-old male with history lower back spinal fusion presents to the emergency department for headache after spinal epidural injection. History of Present Illness: 45-year-old male he does not have any significant comorbidities. Patient states that on Wednesday earlier this week he had a spinal epidural injection for chronic back pain performed by his spinal surgeon in [place]. Several years ago patient had spinal fusion surgery to correct what minnie tate describes as scoliosis. Patient states that Wednesday he went to see his spinal surgeon received an injection in his lower back. Patient tolerated the procedure well. Over the next several days he started to have headache. Patient states the headache is mild. It's improved with laying flat and worsened with standing up. Denies any fever. Pain is non-rating. No weakness to the legs. No saddle anesthesia. Not difficulty ambulating. No bowel or bladder incontinence. Constitutional symptoms. The ROS documented in this emergency department record has been reviewed and confirmed by me. Those systems with pertinent positive or negative responses have been documented in the HPI. All other systems are other negative and/or noncontributory. PHYSICAL EXAM: General Impression: Alert and oriented x3, not in acute distress HEENT: Normocephalic atraumatic, extra-ocular movements intact, pupils equal and reactive to light bilaterally, mucous membranes moist. Cardiovascular: Heart regular rate and rhythm Chest: Able to complete full sentences, no retractions, no tachypnea Musculoskeletal: Pulses present and equal in all extremities, no peripheral edema Back: No abnormalities. Motor: no focal deficits noted Neurological: CN II-XII grossly intact, no focal motor or sensory deficits noted, negative Brudzinski, negative Kernig's Skin: Intact with no visualized rashes Psych: Normal affect and mood ED course: 45-year-old male presents to the emergency department for headache after spinal epidural injection. Vital signs upon arrival are within acceptable limits. Patient does not have any signs or symptoms of epidural infection, spinal cord compression. Patient's clinical presentation suspicious for post-LP headache. Patient reports improvement after fluids and caffeine. Patient states she was feeling well though he stood up to go to the bathroom started having headache again. Patient states he wished that his neurosurgery would call him back. He was been trying to get in touch with him since his symptoms began after the procedure. He has not heard back. Patient agreeable with trial of other analgesic medications. Case is discussed with Dr. Bragg who performed procedure. He states that he also agrees that this is a spinal epidural headache. Dr. Bragg requested patient lie flat and follow-up in his office for possible blood patch. Patient given some prescription for pain medications. Patient agreeable with plan. - Related Data Home Medications Medication Instructions Recorded Confirmed Acetaminophen [Tylenol] 500 mg PO Q4-6H PRN 02/09/21 02/09/21 Lisdexamfetamine Dimesylate 30 mg PO DAILY 02/09/21 02/09/21 [Vyvanse] Meloxicam [Mobic] 7.5 mg PO W/BRKFST PRN 02/09/21 02/09/21 Previous Rx's Medication Instructions Recorded HYDROcodone/APAP 5-325MG [Pennock 1 tab PO Q6HR PRN 3 Days #12 tab 02/09/21 5-325] Allergies Allergy/AdvReac Type Severity Reaction Status Date / Time No Known Allergies Allergy Verified 02/09/21 11:43 Review of Systems ROS Statement: Those systems with pertinent positive or pertinent negative responses have been documented in the HPI. ROS Other: All systems not noted in ROS Statement are negative. Past Medical History Past Medical History: No Reported History Additional Past Medical History / Comment(s): tachycardia History of Any Multi-Drug Resistant Organisms: None Reported Past Surgical History: Back Surgery, Joint Replacement, Orthopedic Surgery, Tonsillectomy Additional Past Surgical History / Comment(s): right below elbow amp Past Psychological History: No Psychological Hx Reported Smoking Status: Never smoker Past Alcohol Use History: Occasional Past Drug Use History: None Reported - Past Family History Father Family Medical History: No Reported History Mother Family Medical History: No Reported History General Exam Limitations: no limitations Course Vital Signs 02/09/21 02/09/21 11:08 13:33 Temperature 97.9 F Pulse Rate 97 88 Respiratory 18 Rate Blood Pressure 141/101 O2 Sat by Pulse 98 97 Oximetry Medical Decision Making - Lab Data Result diagrams: 02/09/21 11:47 02/09/21 11:47 Lab Results 02/09/21 02/09/21 Range/Units 11:47 11:47 WBC 9.3 (3.8-10.6) k/uL RBC 5.61 (4.30-5.90) m/uL Hgb 17.3 (13.0-17.5) gm/dL Hct 52.0 (39.0-53.0) % MCV 92.7 (80.0-100.0) fL MCH 30.8 (25.0-35.0) pg MCHC 33.3 (31.0-37.0) g/dL RDW 12.5 (11.5-15.5) % Plt Count 352 (150-450) k/uL MPV 6.5 Neutrophils % 74 % Lymphocytes % 18 % Monocytes % 5 % Eosinophils % 1 % Basophils % 0 % Neutrophils # 6.8 (1.3-7.7) k/uL Lymphocytes # 1.7 (1.0-4.8) k/uL Monocytes # 0.5 (0-1.0) k/uL Eosinophils # 0.1 (0-0.7) k/uL Basophils # 0.0 (0-0.2) k/uL Sodium 137 (137-145) mmol/L Potassium 4.3 (3.5-5.1) mmol/L Chloride 101 (98-107) mmol/L Carbon Dioxide 28 (22-30) mmol/L Anion Gap 8 mmol/L BUN 20 (9-20) mg/dL Creatinine 0.79 (0.66-1.25) mg/dL Est GFR (CKD-EPI)AfAm >90 (>60 ml/min/1.73 sqM) Est GFR (CKD-EPI)NonAf >90 (>60 ml/min/1.73 sqM) Glucose 110 H (74-99) mg/dL Calcium 9.9 (8.4-10.2) mg/dL Disposition Clinical Impression: Headache after spinal puncture Disposition: HOME SELF-CARE Condition: Fair Instructions (If sedation given, give patient instructions): Acute Headache (ED) Additional Instructions: today you were diagnosed with spinal epidural headache 1. lay flat as much as possible 2. consume caffeine products 3. follow up with Dr. Bragg if symptoms not improved Prescriptions: HYDROcodone/APAP 5-325MG [Pennock 5-325] 1 tab PO Q6HR PRN 3 Days #12 tab PRN Reason: Severe Pain Is patient prescribed a controlled substance at d/c from ED?: Yes If prescribed controlled substance>3 days was MAPS reviewed?: Prescribed <3 Days Referrals: Andrew Christy MD [Primary Care Provider] - 1-2 days
[2021-02-09 11:56] LABS: Basophils % (A) 0 %; Eosinophils # (A) 0.1 k/uL (0-0.7); Eosinophils % (A) 1 %; HGB 17.3 gm/dL (13.0-17.5); Lymphocytes # (A) 1.7 k/uL (1.0-4.8); Lymphocytes % (A) 18 %; MCH 30.8 pg (25.0-35.0); MCHC 33.3 g/dL (31.0-37.0); MCV 92.7 fL (80.0-100.0); Mean Platelet Volume 6.5; Monocytes # (A) 0.5 k/uL (0-1.0); Monocytes % (A) 5 %; Neutrophils # (A) 6.8 k/uL (1.3-7.7); Neutrophils % (A) 74 %; Platelet Count 352 k/uL (150-450); RBC 5.61 m/uL (4.30-5.90); RDW 12.5 % (11.5-15.5); WBC 9.3 k/uL (3.8-10.6)
[2021-02-09] MEDS ORDERED: CAFFEINE-SODIUM BENZOATE 500 MG in SODIUM CHLORIDE 0.9% 1,000 ML IVPB ONE (12:00)
[2021-02-09 12:08] LABS: African American GFR (CKD) >90 (>60 ml/min/1.73 sqM); Anion Gap 8 mmol/L; Blood Urea Nitrogen 20 mg/dL (9-20); Calcium 9.9 mg/dL (8.4-10.2); Carbon Dioxide 28 mmol/L (22-30); Chloride 101 mmol/L (98-107); Glucose 110 mg/dL (74-99); Non-African American GFR(CKD) >90 (>60 ml/min/1.73 sqM); Potassium 4.3 mmol/L (3.5-5.1); Sodium 137 mmol/L (137-145)
[2021-02-09] MEDS ORDERED: MORPHINE SULFATE 2 MG/ML SYRINGE IVP STA (13:32)
[2021-02-09] MEDS ORDERED: KETOROLAC 15 MG/ML 1 ML VIAL IVP STA (13:55)
[2021-02-09 14:54] VITALS: BP 121/87; PULSE 79
== END 2021-02-09 14:54 | disposition home or self-care (01) ==
LOC: EC 11:07
DX: R51.9 Headache, unspecified (principal); Z79.1 Long term (current) use of non-steroidal anti-inflammatories (NSAID); Z79.899 Other long term (current) drug therapy; Z98.1 Arthrodesis status
CPT/HCPCS: 36415; 80048; 85025; 99284; 96374; 96375 ×2; J2270; J1885

== ENCOUNTER → 2021-03-14 | Outpatient (CLI) | payer BC | END | disposition home or self-care (01) | LOC: LABWHC1 09:56 | PROVIDERS: ATTEND Neurological Surgery | DX: Z01.812 Encounter for preprocedural laboratory examination (principal); Z20.822 Contact with and (suspected) exposure to COVID-19 | CPT/HCPCS: U0003; C9803; U0005 ==

== ENCOUNTER → 2022-10-27 | Outpatient (CLI) | payer BC ==
--- NOTE | 2022-10-29 12:18 | CT ---
EXAMINATION TYPE: CT sinus wo con DATE OF EXAM: 10/27/2022 COMPARISON: 03/28/2015 HISTORY: 47-year-old male R43.9, Pt complaining of sinus drainage on left side and left ear blockage. CT DLP: 512 mGycm Automated exposure control for dose reduction was used. TECHNIQUE: Noncontrast axial views of the paranasal sinuses were obtained. Coronal and sagittal recon structions performed. FINDINGS: PARANASAL SINUSES: Mild mucosal thickening anterior ethmoid air cells on both sides. The frontal, maxillary and sphenoid sinuses are clear and well pneumatized. There is no air-fluid level. Reactive nenita- osteogenesis is not seen. There is no destruction of the osseous de luan of the paranasal sinuses. THE NASAL CAVITY: The osteomeatal complexes are patent. Leftward nasal septal deviation. The imaged brain and orbits are normal in appearance. Mastoid air cells and middle ear cavities are well pneumatized. Reformatted images confirm above findings. IMPRESSION: Mild mucosal thickening anterior ethmoid air cells. Leftward nasal septal deviation. No other specifi c abnormality seen.
== END | disposition home or self-care (01) ==
LOC: RADCTMAIN 16:52
PROVIDERS: ATTEND Otolaryngology
DX: J34.2 Deviated nasal septum (principal); J34.89 Other specified disorders of nose and nasal sinuses; R43.9 Unspecified disturbances of smell and taste
CPT/HCPCS: 70486

== ENCOUNTER → 2023-03-23 | Outpatient (CLI) | payer BC ==
--- NOTE | 2023-03-23 08:16 | CT ---
EXAMINATION TYPE: CT chest wo con DATE OF EXAM: 03/23/2023 COMPARISON: None HISTORY: Pectus Excavation CT DLP: 230.[address] of the chest was performed with lung and mediastinal window settings submitted. The la ck of contrast limits evaluation of the vascular, mediastinal and parenchymal structures including th e upper abdomen. LUNGS: The lungs are clear and free of infiltrate. No atelectasis. No pulmonary nodule or mass is de tected. No pleural effusion. No CT evidence of interstitial lung disease. MEDIASTINUM/LELA: Thoracic aorta is of normal caliber with limited evaluation given lack of contrast . The heart is not enlarged. No evidence for mediastinal mass. No lymph nodes greater than 1cm. UPPER ABDOMEN: No significant abnormality is seen. OTHER: Mild pectus excavatum deformity of the sternum. IMPRESSION: 1. Mild pectus excavatum deformity of the sternum.
== END | disposition home or self-care (01) ==
LOC: RADCTMAIN 06:43
PROVIDERS: ATTEND Family Medicine
DX: Q67.6 Pectus excavatum (principal)
CPT/HCPCS: 71250

== ENCOUNTER 2024-11-17 18:22 | Emergency (ER) | payer BC ==
[2024-11-17 18:27] VITALS: TEMP 98
--- NOTE | 2024-11-17 18:59 | ED ---
General Adult HPI - General Chief complaint: Recheck/Abnormal Lab/Rx Stated complaint: high bp Time Seen by Provider: 11/17/24 18:40 Source: patient Mode of arrival: ambulatory Limitations: no limitations - History of Present Illness Initial comments: This patient is a 49-year-old man with history of hypertension that had subsequently resolved, who presents today because he is concerned that his blood pressure has been elevated today. He checked his blood pressure at home and it was in the 130s. He states that since that time he has checked it repeatedly and it has been going up. Patient states that otherwise today he has had a mild headache. He describes it as mild, diffuse, and that he normally would take an ibuprofen when he gets headaches like this but he did not want to because he did not know what that would due to the blood pressure. It is not worst headache of life. Not thunderclap headache. No fever or chills. No neck stiffness. No neurologic symptoms. The patient had previously been on losartan. He states that his doctor stopped it because when he was taking the losartan his blood pressure was going low when he was nearly passing out. Onset/Timin -: hour(s) Location: head Quality: dull Consistency: constant Improves with: none Worsens with: none Treatments Prior to Arrival: other (Losartan) - Related Data Home Medications Medication Instructions Recorded Confirmed No Known Home Medications 12/30/22 12/30/22 Allergies Allergy/AdvReac Type Severity Reaction Status Date / Time No Known Allergies Allergy Verified 11/17/24 18:27 Review of Systems ROS Statement: Those systems with pertinent positive or pertinent negative responses have been documented in the HPI. ROS Other: All systems not noted in ROS Statement are negative. Constitutional: Denies: fever, chills, weakness Eyes: Denies: eye pain, vision change ENT: Denies: ear pain, hearing loss Respiratory: Denies: cough, dyspnea Cardiovascular: Denies: chest pain, palpitations, edema, syncope Gastrointestinal: Denies: abdominal pain, vomiting, diarrhea Genitourinary: Denies: dysuria, hematuria Musculoskeletal: Denies: back pain Skin: Denies: rash Neurological: Reports: as per HPI, headache. Denies: weakness, numbness, confusion, vertigo Past Medical History Past Medical History: No Reported History Additional Past Medical History / Comment(s): tachycardia-RESOLVED. BORN WITH NO ARM/HAND RT SIDE History of Any Multi-Drug Resistant Organisms: None Reported Past Surgical History: Back Surgery, Orthopedic Surgery, Tonsillectomy Additional Past Surgical History / Comment(s): LT KNEE AND LT SHOULDER SX Past Anesthesia/Blood Transfusion Reactions: No Reported Reaction Past Psychological History: No Psychological Hx Reported Smoking Status: Never smoker Past Alcohol Use History: Occasional Past Drug Use History: None Reported - Past Family History Father Family Medical History: No Reported History Mother Family Medical History: No Reported History General Exam Limitations: no limitations General appearance: alert, in no apparent distress Head exam: Present: atraumatic, normocephalic Eye exam: Present: normal appearance, PERRL, EOMI. Absent: scleral icterus, conjunctival injection, nystagmus ENT exam: Present: normal oropharynx Neck exam: Present: normal inspection, full ROM. Absent: meningismus Respiratory exam: Present: normal lung sounds bilaterally. Absent: respiratory distress, wheezes, rales, rhonchi, stridor, accessory muscle use Cardiovascular Exam: Present: regular rate, normal rhythm, normal heart sounds. Absent: systolic murmur, diastolic murmur, rubs, gallop GI/Abdominal exam: Present: soft. 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 Absent: pedal edema, calf tenderness Back exam: Present: normal inspection Neurological exam: Present: alert, oriented X3, CN II-XII intact. Absent: motor sensory deficit Skin exam: Present: warm, dry, intact, normal color. Absent: rash Course Vital Signs 11/17/24 11/17/24 11/17/24 18:23 18:53 19:15 Temperature 98.0 F Pulse Rate 104 H 78 80 Respiratory 18 20 18 Rate Blood Pressure 176/105 167/107 148/106 O2 Sat by Pulse 97 98 98 Oximetry 11/17/24 11/17/24 19:57 20:47 Temperature Pulse Rate 77 84 Respiratory 20 18 Rate Blood Pressure 142/86 136/90 O2 Sat by Pulse 98 Oximetry EKG Findings - EKG Comments: EKG Findings:: Possible right ventricular conduction delay. - EKG Results: EKG: interpreted by ERMD, sinus rhythm, normal axis, normal QRS, normal ST/T Medical Decision Making - Medical Decision Making Was pt. sent in by a medical professional or institution ([facility], REGIONAL SALES REPRESENTATIVE, urgent care, hospital, or alf...) When possible be specific @ -[No] Did you speak to anyone other than the patient for history (EMS, parent, family, police, friend...)? What history was obtained from this source @ -[No] Did you review nursing and triage notes (agree or disagree)? Why? @ -[I reviewed and agree with nursing and triage notes] Were old charts reviewed (outside hosp., previous admission, EMS record, old EKG, old radiological studies, urgent care reports/EKG's, alf records)? Report findings @ -[No old charts were reviewed] Differential Diagnosis (chest pain, altered mental status, abdominal pain women, abdominal pain men, vaginal bleeding, weakness, fever, dyspnea, syncope, headache, dizziness, GI bleed, back pain, seizure, CVA, palpatations, mental health, musculoskeletal)? @ -[Differential Headache: Migraine, tension, cluster, carbon monoxide, central venous thrombosis, pension karma temporal arteritis, acute closure glaucoma, intercranial hemorrhage, mastoiditis, sinusitis, head injury, this is not meant to be an all-inclusive list. EKG interpreted by me (3pts min.). @ -[I interpreted as above] X-rays interpreted by me (1pt min.). @ -[None done] CT interpreted by me (1pt min.). @ -[None done] U/S interpreted by me (1pt. min.). @ -[None done] What testing was considered but not performed or refused? (CT, X-rays, U/S, labs)? Why? @ -[None] What meds were considered but not given or refused? Why? @ -[None] Did you discuss the management of the patient with other professionals (professionals i.e. [facility] Faith, REGIONAL SALES REPRESENTATIVE, lab, RT, psych nurse, social human services assistants, paid search specialist, teacher, marketing and communications officer, case finishing machine adjuster)? Give summary @ -[No] Was smoking cessation discussed for >3mins.? @ -[No] Was critical care preformed (if so, how long)? @ -[No] Were there social determinants of health that impacted care today? How? (Homelessness, low income, unemployed, alcoholism, drug addiction, transportation, low edu. Level, literacy, decrease access to med. care, correction, rehab)? @ -[No] Was there de-escalation of care discussed even if they declined (Discuss DNR or withdrawal of care, Hospice)? DNR status @ -[No] What co-morbidities impacted this encounter? (DM, HTN, Smoking, COPD, CAD, Cancer, CVA, ARF, Chemo, Hep., AIDS, mental health diagnosis, sleep apnea, morbid obesity)? @ -[History of hypertension Was patient admitted / discharged? Hospital course, mention meds given and route, prescriptions, significant lab abnormalities, going to OR and other pertinent info. @ -[Patient is 49-year-old man here to have evaluation of headache and hypertension. The patient does not have features concerning for subarachnoid hemorrhage or other severe etiology. The patient's blood pressure did respond to medication, he was feeling well and wanted to go home Undiagnosed new problem with uncertain prognosis? @ -[No] Drug Therapy requiring intensive monitoring for toxicity (Heparin, Nitro, Insulin, Cardizem)? @ -[No] Were any procedures done? @ -[No] Diagnosis/symptom? @ -[Acute headache Acute on chronic hypertension Acute, or Chronic, or Acute on Chronic? @ -[default] Uncomplicated (without systemic symptoms) or Complicated (systemic symptoms)? @ -[Uncomplicated Side effects of treatment? @ -[No] Exacerbation, Progression, or Severe Exacerbation? @ -[No] Poses a threat to life or bodily function? How? (Chest pain, USA, PR, pneumonia, PE, COPD, DKA, ARF, appy, cholecystitis, CVA, Diverticulitis, Homicidal, Nguyen icidal, threat to staff... and all critical care pts) @ -[No] All treatments are based on ideal body weight as in ED triage - Lab Data Result diagrams: 11/17/24 18:59 11/17/24 18:59 Lab Results 11/17/24 11/17/24 11/17/24 Range/Units 18:59 18:59 18:59 WBC 6.67 (4.50-10.00) 10*3/uL RBC 5.40 (4.40-5.60) 10*6/uL Hgb 16.8 (13.0-17.0) g/dL Hct 49.2 (39.6-50.0) % MCV 91.1 (80.0-97.0) fL MCH 31.1 (27.0-32.0) pg MCHC 34.1 (32.0-37.0) g/dL Plt Count 285 (140-440) 10*3/uL MPV 8.2 L (9.5-12.2) fL Immature Gran % (Auto) 0.3 % Neutrophils % 59.8 % Lymphocytes % 31.2 % Monocytes % 7.8 % Eosinophils % 0.6 % Basophils % 0.3 % Immature Gran # 0.02 (0.00-0.04) 10*3/uL Neutrophils # 3.99 (1.80-7.70) 10*3/uL Lymphocytes # 2.08 (0.90-5.00) 10*3/uL Monocytes # 0.52 (0.20-1.00) 10*3/uL Eosinophils # 0.04 (0.04-0.35) 10*3/uL Basophils # 0.02 (0.00-0.10) 10*3/uL Sodium 138 (137-145) mmol/L Potassium 4.4 (3.5-5.1) mmol/L Chloride 101 (98-107) mmol/L Carbon Dioxide 25 (22-30) mmol/L Anion Gap 12 mmol/L BUN 30 H (9-20) mg/dL Creatinine 0.96 (0.66-1.25) mg/dL Est GFR (CKD-EPI)AfAm >90 (>60 ml/min/1.73 sqM) Est GFR (CKD-EPI)NonAf >90 (>60 ml/min/1.73 sqM) Glucose 96 (74-99) mg/dL Calcium 9.5 (8.4-10.2) mg/dL Magnesium 2.1 (1.6-2.3) mg/dL Total Bilirubin 0.6 (0.2-1.3) mg/dL AST 34 (17-59) U/L ALT 20 (4-49) U/L Alkaline Phosphatase 64 (38-126) U/L Troponin I <0.012 (0.000-0.034) ng/mL Total Protein 7.2 (6.3-8.2) g/dL Albumin 4.6 (3.5-5.0) g/dL Disposition Clinical Impression: Hypertension, Headache Disposition: HOME SELF-CARE Condition: Good Instructions (If sedation given, give patient instructions): Acute Headache (ED), Hypertension (ED) Is patient prescribed a controlled substance at d/c from ED?: No Referrals: None,Stated [REFERRING] - 1-2 days
[2024-11-17] MEDS: hydrALAZINE HCL 20 MG/ML 1 ML VIAL IVP STA (19:14)
[2024-11-17 20:02] LABS: Basophils # (A) 0.02 10*3/uL (0.00-0.10); Basophils % (A) 0.3 %; Eosinophils # (A) 0.04 10*3/uL (0.04-0.35); Eosinophils % (A) 0.6 %; HCT 49.2 % (39.6-50.0); HGB 16.8 g/dL (13.0-17.0); Lymphocytes # (A) 2.08 10*3/uL (0.90-5.00); Lymphocytes % (A) 31.2 %; MCH 31.1 pg (27.0-32.0); MCHC 34.1 g/dL (32.0-37.0); MCV 91.1 fL (80.0-97.0); Monocytes # (A) 0.52 10*3/uL (0.20-1.00); Monocytes % (A) 7.8 %; Neutrophils # (A) 3.99 10*3/uL (1.80-7.70); Neutrophils % (A) 59.8 %; Platelet Count 285 10*3/uL (140-440); RBC 5.40 10*6/uL (4.40-5.60); RDW 12.3 % (11.5-14.5); WBC 6.67 10*3/uL (4.50-10.00)
[2024-11-17 20:14] LABS: ALT 20 U/L (4-49); African American GFR (CKD) >90 (>60 ml/min/1.73 sqM); Albumin 4.6 g/dL (3.5-5.0); Anion Gap 12 mmol/L; Blood Urea Nitrogen 30 mg/dL (9-20); Calcium 9.5 mg/dL (8.4-10.2); Carbon Dioxide 25 mmol/L (22-30); Chloride 101 mmol/L (98-107); Glucose 96 mg/dL (74-99); Non-African American GFR(CKD) >90 (>60 ml/min/1.73 sqM); Sodium 138 mmol/L (137-145); Total Protein 7.2 g/dL (6.3-8.2)
[2024-11-17 20:19] LABS: Potassium 4.4 mmol/L (3.5-5.1)
[2024-11-17 20:20] LABS: AST 34 U/L (17-59); Alkaline Phosphatase 64 U/L (38-126); Magnesium 2.1 mg/dL (1.6-2.3)
[2024-11-17 20:48] VITALS: BP 136/90; PULSE 84; RESP 18
== END 2024-11-17 20:47 | disposition home or self-care (01) ==
LOC: EC 18:22
DX: I10 Essential (primary) hypertension (principal)
CPT/HCPCS: 36415; 93005; 80053; 83735; 84484; 85025; 99284; 96374; J0360